=== PATIENT | male | born 2000 | race Caucasian/White ===

== ENCOUNTER 2018-02-25 14:04 | Emergency (ER) | payer OTHER ==
[2018-02-25 14:39] VITALS: BP 136/91
--- NOTE | 2018-02-25 15:16 | UC ---
Skin Complaint HPI - HPI Summary HPI Summary: 18 yo male with rash x 2 mos started on lower abd and thighs mildly pruritic now starting on arms no pain no new soaps or detergents - History of Current Complaint Chief Complaint: UCRash Time Seen by Provider: 02/25/18 14:55 Stated Complaint: SKIN COMPLAINT Hx Obtained From: Patient Onset/Duration: Gradual Onset Timing: Constant Onset Severity: Mild Current Severity: Mild Pain Intensity: 0 Pain Scale Used: 0-10 Numeric Location: Other - see ABILIO Character: Pruritus, Redness Aggravating Factor(s): Nothing Alleviating Factor(s): Nothing - Allergy/Home Medications Allergies/Adverse Reactions: Allergies Allergy/AdvReac Type Severity Reaction Status Date / Time No Known Allergies Allergy Verified 02/25/18 14:36 Home Medications: Home Medications FLUoxetine* [PROzac*] 20 mg PO DAILY 02/25/18 [History Confirmed 02/25/18] Review of Systems Constitutional: Negative Skin: Rash Eyes: Negative ENT: Negative Respiratory: Negative Cardiovascular: Negative Gastrointestinal: Negative Genitourinary: Negative Motor: Negative Neurovascular: Negative Musculoskeletal: Negative Neurological: Negative Psychological: Negative Is Patient Immunocompromised?: No All Other Systems Reviewed And Are Negative: Yes PMH/Surg Hx/FS Hx/Imm Hx Previously Healthy: Yes - Surgical History Surgical History: Yes Surgery Procedure, Year, and Place: Removal of head 'blood blister' - Family History Known Family History: Positive: Hypertension - Social History Alcohol Use: None Substance Use Type: None Smoking Status (MU): Never Smoked Tobacco Physical Exam Triage Information Reviewed: Yes Appearance: No Pain Distress, Well-Nourished Vital Signs: Initial Vital Signs Temp 99.0 F 02/25/18 14:31 Pulse 71 02/25/18 14:31 Resp 16 02/25/18 14:31 BP 136/91 02/25/18 14:31 Pulse Ox 99 02/25/18 14:31 Vital Signs Reviewed: Yes ENT: Positive: Hearing grossly normal, Pharynx normal, Pharyngeal erythema Respiratory: Positive: Lungs clear, Normal breath sounds, No respiratory distress Cardiovascular: Positive: RRR, No Murmur Musculoskeletal: Positive: ROM Intact, No Edema Neurological: Positive: Alert Psychological Exam: Normal Skin Exam: Other - salmon colored ovoid lesions on lowr abd and lat thighs very few on arms Course/Dx - Diagnoses Provider Diagnoses: rash of uncertain cause Discharge - Sign-Out/Discharge Documenting (check all that apply): Discharge/Admit/Transfer - Discharge Plan Condition: Stable Disposition: HOME Prescriptions: Fluconazole 150 MG (NF) [Diflucan 150 mg (NF)] 150 mg PO ONCE #3 tab Patient Education Materials: Acute Rash (ED) Referrals: Franchesca Riggs [Medical Doctor] - (call and ask for a [place] APPT on [facility]) Additional Instructions: ? fungal diflucan - one a week x 3 - Billing Disposition and Condition Condition: STABLE Disposition: HOME
== END 2018-02-25 15:21 | disposition home or self-care (01) ==
LOC: UCCORT 14:04
DX: R21 Rash and other nonspecific skin eruption (principal)
CPT/HCPCS: 99202; G0463